=== PATIENT | male | born 1990 | race Caucasian/White ===

== ENCOUNTER 2016-08-29 19:18 | Inpatient (IN) | payer OTHER ==
[~2016-08-29] VITALS: Ht 167.6 cm; Wt 83.5 kg
--- NOTE | 2016-08-29 19:49 | ERA ---
ER Documentation Chief Complaint Date/Time DATE: 08/29/16 TIME: 19:28 Chief Complaint sudden onset right face/arm/leg numb, CARMONA while driving, strong bilat, +face HPI 26-year-old male with a history of prediabetes brought to the ED via rescue ambulance for evaluation of headache, right-sided numbness and difficulty finding words when speaking. At approximately 17:00 while [address] home from work experienced decreased vision from his right eye and upon arriving home complained of right facial numbness and was noticed by family to have a right facial droop and difficulty finding words when asked questions. He then began having numbness and weakness to his right arm and leg. Mild, gradual onset, generalized headache but no neck or back pain. Denies chest pain or palpitations. No shortness of breath or cough. Denies abdominal pain, nausea vomiting. No URI symptoms, rhinorrhea or sore throat. No fevers or chills. ROS All systems reviewed and are negative except as per history of present illness. Medications Home Meds No Active Prescriptions or Reported Meds Allergies Allergies: Coded Allergies: No Known Drug Allergies (Verified Allergy, Unknown, 08/29/16) PMhx/Soc Reviewed in chart. As per HPI. Hx Miscellaneous Medical Probl: Yes (Prediabetes) Hx Alcohol Use: No Hx Substance Use: No Hx Tobacco Use: No FmHx Diabetes and hypertension but no stroke or cancer. Physical Exam Vitals Vital Signs Date Time Temp Pulse Resp B/P Pulse Ox O2 Delivery O2 Flow Rate FiO2 08/29/16 21:45 76 22 117/74 96 08/29/16 21:24 83 18 118/82 96 08/29/16 20:55 88 18 137/85 99 08/29/16 20:42 84 16 137/85 99 08/29/16 20:30 2 08/29/16 19:20 97.8 90 20 151/90 100 Physical Exam Const: Alert, anxious in mild distress. Head: Atraumatic Eyes: Pupils equal reactive to light, extraocular movements are intact. No neglect. No gaze preference. ENT: Normal External Ears, Nose and Mouth. Neck: Full range of motion. Nontender. Carotids 2+ bilaterally without bruits. Resp: Clear to auscultation bilaterally Cardio: Regular rate and rhythm, no murmurs Abd: Soft, non tender, non distended. Normal bowel sounds Skin: No petechiae or rashes Back: No midline or flank tenderness Ext: No cyanosis, or edema Neur: Awake and alert. Aphasic. Right facial droop. Mild right pronator drift. Unable to support right leg against gravity. Mild decreased sensation right upper and right lower extremity. NIH score 5. Psych: Appears anxious but not depressed. Result Diagram: 08/29/16193908/29/161939 Results 24 hrs Laboratory Tests Test 08/29/16 19:40 Activated Partial Thromboplast Time 29.4Sec Alanine Aminotransferase (ALT/SGPT) 41IU/L Albumin 4.5g/dl Albumin/Globulin Ratio 1.18 Alkaline Phosphatase 85IU/L Anion Gap 19 Aspartate Amino Transf (AST/SGOT) 39IU/L Basophils # 0.010^3/ul Basophils % 0.4% Blood Morphology Comment Blood Urea Nitrogen 14mg/dl Calcium Level 9.4mg/dl Carbon Dioxide Level 24mmol/L Chloride Level 103mmol/L Creatinine 0.84mg/dl Direct Bilirubin 0.00mg/dl Eosinophils # 0.210^3/ul Eosinophils % 2.3% Ethyl Alcohol Level < 10.0mg/dl Globulin 3.80g/dl Glucose Level 90mg/dl Hematocrit 46.4% Hemoglobin 15.9g/dl Hemoglobin A1c 5.2% INR International Normalized Ratio 0.98 Indirect Bilirubin 0.4mg/dl Lymphocytes # 2.610^3/ul Lymphocytes % 27.0% Mean Corpuscular Hemoglobin 28.2pg Mean Corpuscular Hemoglobin Concent 34.2g/dl Mean Corpuscular Volume 82.6fl Mean Platelet Volume 9.1fl Monocytes # 0.610^3/ul Monocytes % 6.2% Neutrophils # 6.210^3/ul Neutrophils % 64.1% Nucleated Red Blood Cells # 0.010^3/ul Nucleated Red Blood Cells % 0.0/100WBC Platelet Count 56924^3/UL Potassium Level 3.9mmol/L Prothrombin Time 13.0Sec Prothrombin Time Ratio 1.0 Red Blood Count 5.6110^6/ul Red Cell Distribution Width 12.2% Sodium Level 142mmol/L Total Bilirubin 0.4mg/dl Total Protein 8.3g/dl Troponin I < 0.012ng/ml White Blood Count 9.710^3/ul Current Medications Medications (Trade) Dose Ordered Sig/Lashell Route PRN Reason Start Time Stop Time Status Last Admin Dose Admin Alteplase, Recombinant (Activase) 7.9 mg BOLUS OVER 1 MIN ONCE IV* 08/29/16 20:30 08/29/16 20:31 DC 08/29/16 20:41 Alteplase, Recombinant 71.3 mg 71.3 mg ISCHEMIC STROKE ONCE IV* 08/29/16 20:30 08/29/16 20:31 DC 08/29/16 20:42 Sodium Chloride (NS) 50 ml @ 0 mls/hr FLUSH AFTER TPA ONCE IV 08/29/16 20:30 08/29/16 20:31 DC 08/29/16 20:30 Morphine Sulfate (morphine) 4 mg ONCE STAT IV 08/29/16 20:55 08/29/16 21:00 DC Ondansetron HCl (Zofran Inj) 4 mg ONCE STAT IV 08/29/16 20:55 08/29/16 21:00 DC Metoclopramide HCl (Reglan) 10 mg ONCE ONCE IV 08/29/16 21:00 08/29/16 21:01 DC 08/29/16 21:07 Diphenhydramine HCl 25 mg 25 mg ONCE ONCE IV 08/29/16 21:00 08/29/16 21:01 DC 08/29/16 21:07 Dextrose/Sodium Chloride (D5-1/2ns) 1,000 ml @ 100 mls/hr Q10H IV 08/29/16 21:47 08/30/16 09:03 RHYTHM STRIP INTERPRETATION: Time: []. Sinus rhythm. Ventricular rate 84. No ectopy. Indication: Weakness. EKG: TIME: 20: 27. Sinus rhythm. Ventricular rate 81. Normal MD and QRS. Incomplete right bundle branch block. No acute ST segment elevation or depression. No ectopy. EP Interpretation: Abnormal EKG. IMAGING: PROCEDURE: XR Chest. CLINICAL INDICATION: Possible cerebrovascular accident. TECHNIQUE: Single frontal view of the chest was obtained COMPARISON: None FINDINGS: The heart and mediastinum are within normal limits. The lungs are clear. There is no pleural effusion or pneumothorax. IMPRESSION: No acute disease. RPTAT: UU Physician Danish Date Time Electronically viewed and signed by Physician Danish on 08/29/2016 20:21 RS/ PROCEDURE: CT Brain without contrast. CLINICAL INDICATION: Code stroke TECHNIQUE: A CT of the brain was performed on a GE [employer] 64-slice CT scanner utilizing axial imaging from the skull base through the vertex without IV contrast. Multiplanar reformatted images were made. Images were reviewed on a PACS workstation. The CTDIvol is 45.76 mGy and the DLP is 937.30 mGycm. One of the following 3 dose reduction techniques were used: Automated exposure control; adjustment of the mA and/or kV according to patient size; or use of iterative reconstruction technique. COMPARISON: None available FINDINGS: There is no intracranial hemorrhage, mass effect, or midline shift. No extra- axial fluid collection is seen. The ventricles and sulci are normal in size and configuration. The density of the brain is normal, and the sandhu white matter differentiation appears well-preserved. The visualized scalp and calvarium are normal. The bilateral orbits are normal. The bilateral paranasal sinuses, mastoid air cells and middle ear cavities are clear. IMPRESSION: 1. No evidence of acute intracranial hemorrhage, infarcts, or acute intracranial pathology. 2. Normal noncontrast head CT. A call report was made to RAMÓN Ruiz at 08/29/2016 7:50:51 PM following the completion of the examination by the undersigned. RPTAT: HDC .Iman Martins MD, MD Date Time Electronically viewed and signed by .Iman Martins MD, on 08/29/2016 19: 51 .C/ Procedures/MDM DOCUMENTS REVIEWED: ED nurse, EMS. No prior records available. ED COURSE: 19:41: Code stroke protocol initiated 19:50: Tele-Neurology, Dr Tilwalli 19:50: CT report 20:30: TPA ordered 20:42: TPA Bolus and drip MEDICAL DECISION MAKIN-year-old male with a history of prediabetes brought to the ED via rescue ambulance for evaluation of headache, right-sided numbness and difficulty finding words when speaking. Differential diagnosis includes but is not limited to acute CVA, intracranial mass, hemorrhage, anxiety and migraine without aura. CT of the brain is negative for bleed, mass or stroke. Tele-neurology consult obtained and TPA recommended. Bolus and drip given as per protocol. Patient will be admitted to intensive care unit for stroke workup , further evaluation and management. Counseled patient and family regarding diagnosis, diagnostic results and plan for admission. CALLS/CONSULTS: Time 19:50, Dr. Dr Carbajal, Recommends TPA. CALLS/CONSULTS: Time 21:10, [facility], Dr. Lagunas, Case #[id number]. Agrees patient is not stable for transfer and admission authorized. CALLS/CONSULTS: Time 21:25, Dr. Gee. PATIENT CARE TRANSITIONED: Time: 21:25, Dr. Gee. CRITICAL CARE TIME: Due to the high probability of sudden clinically significant neurologic and hemodynamic deterioration, this patient with acute weakness, possible CVA who received TPA required multiple, frequent reevaluations of vital signs and response to therapy. Additional critical care time was spent in obtaining supplemental history from family and consultation with and consultation with the neurologist the admitting physician. TOTAL CRITICAL CARE TIME: 40 minutes not including other separately reportable procedures. Departure Diagnosis: Primary Impression: Acute right-sided weakness Additional Impressions: Received intravenous tissue plasminogen activator (tPA) in emergency department CVA (cerebral vascular accident) Qualified Code: I63.9 - Cerebrovascular accident (CVA), unspecified mechanism Headache Qualified Code: R51 - Nonintractable headache, unspecified chronicity pattern , unspecified headache type Condition: Critical QUAN MELGAR MD Aug 29, 2016 19:48
[2016-08-29 20:11] LABS: BASOPHILS % 0.4 % (0.0-2.0); EOSINOPHILS # 0.2 10^3/ul (0.0-0.5); EOSINOPHILS % 2.3 % (0.0-7.0); HEMATOCRIT 46.4 % (42.0-52.0); HEMOGLOBIN 15.9 g/dl (14.0-18.0); INR 0.98; LYMPHOCYTES # 2.6 10^3/ul (0.8-2.9); MEAN CORPUSCULAR HEMOGLOBIN 28.2 pg (29.0-33.0); MEAN CORPUSCULAR HGB CONC 34.2 g/dl (32.0-37.0); MEAN CORPUSCULAR VOLUME 82.6 fl (82.0-101.0); MEAN PLATELET VOLUME 9.1 fl (7.4-10.4); MONOCYTE # 0.6 10^3/ul (0.3-0.9); MONOCYTES % 6.2 % (0.0-11.0); NEUTROPHIL # 6.2 10^3/ul (1.6-7.5); NEUTROPHILS % 64.1 % (39.0-77.0); PLATELET COUNT 227 10^3/UL (140-440); RED BLOOD COUNT 5.61 10^6/ul (4.70-6.10); RED CELL DISTRIBUTION WIDTH 12.2 % (11.5-14.5); UNCORRECTED WBC 9.7 10^3/ul (4.8-10.8); WHITE BLOOD COUNT 9.7 10^3/ul (4.8-10.8)
[2016-08-29 20:12] LABS: ALBUMIN 4.5 g/dl (3.3-4.9); PARTIAL THROMBOPLASTIN TIME 29.4 Sec (25.0-35.0)
[2016-08-29 20:13] LABS: CHLORIDE 103 mmol/L (97-110); POTASSIUM 3.9 mmol/L (3.5-5.1); SODIUM 142 mmol/L (135-144)
[2016-08-29 20:15] LABS: ALBUMIN/GLOBULIN RATIO 1.18; ALKALINE PHOSPHATASE 85 IU/L (42-121); ANION GAP 19 (8-16); ASPARTATE AMINO TRANSFERASE 39 IU/L (15-46); BILIRUBIN,INDIRECT 0.4 mg/dl (0-1.1); BILIRUBIN,TOTAL 0.4 mg/dl (0.2-1.3); CARBON DIOXIDE 24 mmol/L (21-31); CREATININE 0.84 mg/dl (0.61-1.24); TOTAL PROTEIN 8.3 g/dl (6.1-8.1)
[2016-08-29 20:16] LABS: ALANINE AMINOTRANSFERASE 41 IU/L (13-69); BLOOD UREA NITROGEN 14 mg/dl (7-20); CALCIUM 9.4 mg/dl (8.4-10.2); GLUCOSE 90 mg/dl (70-220)
--- NOTE | 2016-08-29 20:21 | RADRPT ---
PROCEDURE: XR Chest. CLINICAL INDICATION: Possible cerebrovascular accident. TECHNIQUE: Single frontal view of the chest was obtained COMPARISON: None FINDINGS: The heart and mediastinum are within normal limits. The lungs are clear. There is no pleural effusion or pneumothorax. IMPRESSION: No acute disease. RPTAT: UU Physician Danish Date Time Electronically viewed and signed by Physician Danish on 08/29/2016 20:21 RS/
[2016-08-29 20:25] LABS: CONDITION 1
[2016-08-29 20:30] LABS: TROPONIN-I < 0.012 ng/ml (0.00-0.12)
[2016-08-29] MEDS ORDERED: ALTEPLASE 100 MG INJ IV* ONE (20:30)
[2016-08-29] MEDS ORDERED: SOD CHLORIDE 0.9% 50 ML IV ONE (20:30)
[2016-08-29] MEDS ORDERED: ALTEPLASE (tPA) 1 MG/ML BOLUS SYG IV* ONE (20:30)
[2016-08-29] MEDS ORDERED: ONDANSETRON 4 MG INJ IV STA (20:55)
[2016-08-29] MEDS ORDERED: morphine 4 MG/ML VIAL IV STA (20:55)
[2016-08-29] MEDS ORDERED: DIPHENHYDRAMINE 50 MG INJ IV ONE (21:00)
[2016-08-29] MEDS ORDERED: METOCLOPRAMIDE 10 MG INJ IV ONE (21:00)
[2016-08-29] MEDS ORDERED: LORAZEPAM 2 MG INJ IV PRN (22:00)
[2016-08-29] MEDS ORDERED: ONDANSETRON 4 MG INJ IV PRN (22:00)
[2016-08-29] MEDS ORDERED: ACETAMINOPHEN 325 MG TAB PO PRN (22:00)
[2016-08-29] MEDS ORDERED: morphine 2 MG INJ IV PRN (22:00)
--- NOTE | 2016-08-29 22:07 | STROKE ---
Date/Time of Note Date/Time of Note DATE: 08/29/16 TIME: 20:57 Patient Information General Patient location: emergency Arrival Date 08/29/16 Onset Date: Aug 29, 2016 Onset Time: 18:00 Age 26 Gender male Weight 88 kg Vital Signs Vital Signs Vital Signs Date Time Temp Pulse Resp B/P Pulse Ox O2 Delivery O2 Flow Rate FiO2 08/29/16 20:30 2 08/29/16 19:20 97.8 90 20 151/90 100 Patient History Past Medical History None Past Surgical History None Current Medications Anti-Coagulants: None Anti-Platelets: None Allergies: Coded Allergies: No Known Drug Allergies (Verified Allergy, Unknown, 08/29/16) Labs Hematology Labs Hematology Test 08/29/16 19:40 Basophils # 0.010^3/ul (0.0-0.1) Basophils % 0.4% (0.0-2.0) Blood Morphology Comment Eosinophils # 0.210^3/ul (0.0-0.5) Eosinophils % 2.3% (0.0-7.0) Hematocrit 46.4% (42.0-52.0) Hemoglobin 15.9g/dl (14.0-18.0) Lymphocytes # 2.610^3/ul (0.8-2.9) Lymphocytes % 27.0% (15.0-51.0) Mean Corpuscular Hemoglobin 28.2pg (29.0-33.0) Mean Corpuscular Hemoglobin Concent 34.2g/dl (32.0-37.0) Mean Corpuscular Volume 82.6fl (82.0-101.0) Mean Platelet Volume 9.1fl (7.4-10.4) Monocytes # 0.610^3/ul (0.3-0.9) Monocytes % 6.2% (0.0-11.0) Neutrophils # 6.210^3/ul (1.6-7.5) Neutrophils % 64.1% (39.0-77.0) Nucleated Red Blood Cells # 0.010^3/ul (0.0-0.0) Nucleated Red Blood Cells % 0.0/100WBC (0.0-0.0) Platelet Count 32994^3/UL (140-440) Red Blood Count 5.6110^6/ul (4.70-6.10) Red Cell Distribution Width 12.2% (11.5-14.5) White Blood Count 9.710^3/ul (4.8-10.8) Chemistry Labs Chemistry Test 08/29/16 19:40 Alanine Aminotransferase (ALT/SGPT) 41IU/L (13-69) Albumin 4.5g/dl (3.3-4.9) Albumin/Globulin Ratio 1.18 Alkaline Phosphatase 85IU/L (42-121) Anion Gap 19 (8-16) Aspartate Amino Transf (AST/SGOT) 39IU/L (15-46) Blood Urea Nitrogen 14mg/dl (7-20) Calcium Level 9.4mg/dl (8.4-10.2) Carbon Dioxide Level 24mmol/L (21-31) Chloride Level 103mmol/L (97-110) Creatinine 0.84mg/dl (0.61-1.24) Direct Bilirubin 0.00mg/dl (0.00-0.20) Globulin 3.80g/dl (1.3-3.2) Glucose Level 90mg/dl (70-220) Hemoglobin A1c 5.2% (0-5.9) Indirect Bilirubin 0.4mg/dl (0-1.1) Potassium Level 3.9mmol/L (3.5-5.1) Sodium Level 142mmol/L (135-144) Total Bilirubin 0.4mg/dl (0.2-1.3) Total Protein 8.3g/dl (6.1-8.1) Troponin I < 0.012ng/ml (0.00-0.12) Coagulation Labs: Coagulation Test 08/29/16 19:40 Activated Partial Thromboplast Time 29.4Sec (25.0-35.0) INR International Normalized Ratio 0.98 Prothrombin Time 13.0Sec (12.2-14.2) Prothrombin Time Ratio 1.0 History & Physical Patient History Notes Pt Hx Reviewed History of Present Illness 26yo M presents with acute onset visual difficulty, right facial weakness, and right arm and leg numbness and weakness. Patient reports that his symptoms began on his way home from feeding horses, so he was normal at 6pm. Patient's symptoms began with visual difficulty in his right eye, and on arrival home he was noted to have right facial droop, then noticed right face, arm, and leg numbness and weakness. Patient now also reports he has a headache. He denies photophobia, sonophobia, or nausea. Review of Systems Constitutional: no symptoms reported EENTM: no symptoms reported Respiratory: no symptoms reported Cardiovascular: no symptoms reported Gastrointestinal: no symptoms reported Genitourinary: no symptoms reported Musculoskeletal: no symptoms reported Skin: no symptoms reported Psychiatric/Neurological: no symptoms reported All Other Systems: Reviewed and Negative NIH Stroke Scale NIH Stroke Scale 1A - Level of Conciousness: 0 - Alert keenly [id number] LOC Questions: 1 - Anwers one [id number] - LOC Commands: 0 - Performs both tasks2 - Best Gaze: 0 - Normal3 - Visual: 0 - No visual loss4 - Facial Palsy: 2 - Complete [id number] - Motor Arm - Left: 0 - No [id number] - Motor Arm - Right: 0 - No wrmgb0O - Motor Leg - Left: 0 - No exapo6S - Motor Leg - Right: 0 - No drift7 - Limb Ataxia: 0 - Absent8 - Sensory: 1 - Mild to moderate loss9 - Best Language: 1- Mild to moderate aphasiaDysarthria: 0 - [id number] - Extinction and inattentio: 0 - No abnormalityTotal Score: 4 (vision mostly absent in right eye only, smile initially symmetric then right facial droop, left leg able to maintain elevation but unable to perform Heel to medrano for ataxia testing ) Date/Time Recorded DATE: 08/29/16 TIME: 20:57 Submitted By Eze Carbajal t-PA Imaging Review Imaging Reviewed: Yes Date/Time Imaging Reviewed DATE: 08/29/16 TIME: 20:57 Imaging Findings No acute changes t-PA Administration Recommendation: Yes Weight 88 kg t-PA Recommendation Date/Time 08/29/16 20:20 Recommedation submitted by Eze Carbajal Recommendations Impression Diagnosis acute ischemic stroke Recommendation 26yo M presents with acute onset right sided numbness, weakness, and visual disturbance. Neurological exam is notable for right facial droop, right face, arm, and leg numbness, possible left leg weakness demonstrated with difficulty performing heel-medrano on left leg, and mild aphasia. I suspect acute ischemic stroke but differential diagnosis also includes complicated migraine headache vs psychosomatic weakness. I reviewed the risks and benefits of IV TPA in detail with the patient and his aunt. They agreed with my recommendation for IV TPA. I recommend post-TPA orders be followed, and recommend further workup to include MRI Brain with and without gadolinium, MRA of the head without gadolinium, MRA of the neck with gadolinium, and transthoracic echocardiogram. After my initial consultation, I was called as patient continued to feel his vision was impaired and that his headache was worsening. I then recommended Reglan 10mg IV x 1 with Benadryl 25mg x 1 as this could help if symptoms are related to migraine headache. Post t-PA Order recommendation: Document q15 min vitals Document q15 min neuro checks Document q15 min bleeding checks Refer to t-PA Order Sets Diagnostic Labs: Lipid Proile Hgb A1C CMP CBC w/Diff Coags Therapy: Physical Therapy Speech Therapy Occupational Therapy Misc. Recommendations: Bedside Swallow Evaluation Pnumatic Compression Devices Avoid Love Catheter Stroke Education Smoking Education EZE CARBAJAL Aug 29, 2016 21:13
[2016-08-29 22:45] LABS: ADD UMIC NO; URINE BILIRUBIN (Dip) NEGATIVE (NEGATIVE); URINE BLOOD (Dip) NEGATIVE (NEGATIVE); URINE COLOR LT. YELLOW (YELLOW); URINE GLUCOSE (Dip) NEGATIVE (NEGATIVE); URINE KETONES (Dip) NEGATIVE (NEGATIVE); URINE LEUKOCYTE ESTERASE (Dip) NEGATIVE (NEGATIVE); URINE NITRITE (Dip) NEGATIVE (NEGATIVE); URINE TOTAL PROTEIN (Dip) NEGATIVE (NEGATIVE); URINE UROBILINOGEN (Dip) 0.2 E.U./dL (0.1-1.0)
[2016-08-29 22:50] LABS: BARBITURATES NEGATIVE (NEGATIVE); BENZODIAZEPINES NEGATIVE (NEGATIVE); CANNABINOIDS NEGATIVE (NEGATIVE); COCAINE NEGATIVE (NEGATIVE); OPIATES NEGATIVE (NEGATIVE)
[2016-08-29] MEDS: DEXTROSE 5%-0.45% NACL 1,000 ML IV SCH (23:38)
[2016-08-30] VITALS (54 sets, daily range): BP systolic 96–146; BP diastolic 57–98; PULSE 64–100; RESP 10–26; Ht 167.6 cm; Wt 83.5 kg
[2016-08-30] MEDS: ACCUCHECK XX SCH ×4 (05:32→23:27)
[2016-08-30 06:14] LABS: CHOL/HDL RATIO 5.3 RATIO
[2016-08-30] MEDS: DOCUSATE SODIUM 100 MG CAP PO SCH ×2 (09:00→20:06)
[2016-08-30] MEDS: DEXTROSE 5%-0.45% NACL 1,000 ML IV SCH ×2 (09:03→17:41)
--- NOTE | 2016-08-30 10:12 | HP ---
DATE OF ADMISSION: 08/29/2016 TIME SEEN: 0300 CHIEF COMPLAINT: Right-sided weakness and numbness. The patient is a 26-year-old male with a histor y of dyslipidemia who presents to the emergency department with a chief complaint of right-sided wea kness and numbness. It seems like his symptoms started out with right eye visual abnormality follow ed by right facial droop and then right facial numbness ____ right upper and lower extremity weaknes s and numbness. The patient also reported headache but denied chest pain, shortness of breath, fever , chills, nausea, vomiting. When he presented to the ER blood pressure was 151/90, heart rate 90, respiratory rate 20, temperatu re 97.8, oxygen saturation 100% on room air. CBC and CMP are unremarkable. Brain CT with no eviden ce of acute hemorrhage, infarct or intracranial pathology and chest x-ray no active disease. The p atient was evaluated by Dr. Jessy Carbajal tele neurologist. He is now status post administration of TPA. Currently, he is in the ICU and facial droop has resolved. He has almost full strength now. REVIEW OF SYSTEMS: A 12-point review of systems was performed and is negative except mentioned in t he HPI. PAST MEDICAL HISTORY: As per HPI. PAST SURGICAL HISTORY: Denied. SOCIAL HISTORY: Drinks alcohol socially. Denies history of tobacco or illicit drug use. ALLERGIES: NO KNOWN DRUG ALLERGIES. MEDICATION: None. PHYSICAL EXAMINATION VITAL SIGNS: Stable. GENERAL: No acute distress, responds and answering questions appropriately, speak in full sentences . HEENT: No obvious head deformity. Pupils reactive to light. No facial droop. CARDIOVASCULAR: Regular rate and rhythm with no extra sounds. LUNGS: Clear. ABDOMEN: Soft, nontender, nondistended. Positive bowel sounds. EXTREMITIES: He has slightly decreased strength in the right upper extremity. Otherwise, the rest of the extremities with full strength and sensation are intact. No facial droop. No edema. LABORATORY DATA: CBC and CMP are unremarkable. IMAGING: Chest x-ray and brain CT, there was no active disease. IMPRESSION: 1. Acute cerebrovascular accident, status post TPA. 2. History of hyperlipidemia. PLAN: Continue ICU monitoring. We will followup post TPA protocol. We will obtain MRI of the brai n as well as MRA of the head and neck as well as 2D echo. We will check fasting lipid and A1c in the morning. He will be started on statin 24 hours after TPA. We will check a formal neurology consul t. The patient will have physical therapy prior to discharge and if needed he will also have a for mal speech/swallow evaluation. Further workup and management per clinical course. Dictated By: NIDIA CALDERON/MARION Conf#: [id number] DID#: [id number]
[2016-08-30] MEDS ORDERED: ATOR40TA68 PO (10:56)
[2016-08-30] MEDS ORDERED: ASPI-664 PO (10:56)
--- NOTE | 2016-08-30 12:57 | RADRPT ---
Echocardiogram Report Patient Name: LANDY PETERSON Gender: Male Date: 1990 Study Date: 30-Aug-2016 Lens Dotter: Cheri Montaño RDCS Location: 105 Ref. Physician: NIDIA PRECIADO Quality: Good Procedures: Transthoracic echocardiogram with complete 2D, M-Mode, and doppler examination. Indications: Evaluate Left Ventricular function. 2D/M Mode Doppler Measurement Value Normal Ranges Measurement Value Normal Ranges LVIDd 2D 5.1 3.5 - 5.6 cm AV Peak Stephen 1.3 m/sec LVIDs 2D 3.5 2.1 - 4.1 cm AV Peak PG 6.8 mmHg LVPWd 2D 0.8 0.6 - 1.1 cm LVOT Peak Stephen 1.0 m/sec IVSd 2D 1.0 0.6 - 1.1 cm LVOT Peak PG 4.2 mmHg AoR Diam 2D 3.2 2.0 - 3.7 cm MV E Peak Stephen 0.6 m/sec EDV 2D 123.4 cm3 MV A Peak Stephen 0.6 m/sec ESV 2D 41.7 cm3 MV E/A 1.0 LA Dimen 2D 3.9 2.3 - 4.0 cm MV Decel Time 148 msec MV Decel Tipton 4 MV E/A 1.0 Findings Left Ventricle: Normal left ventricular systolic function. Normal left ventricular cavity size. Normal left ventricular wall thickness. Ejection fraction is visually estimated at 50 %. Right Ventricle: Normal right ventricular size. Normal right ventricular systolic function. Left Atrium: The left atrium is normal in size. Right Atrium: The right atrium is normal in size. Mitral Valve: Normal appearance and function of the mitral valve with trace physiologic regurgitation. Aortic Valve: Normal appearance of the aortic valve. No significant aortic stenosis or insufficiency. Tricuspid Valve: Normal appearance and function of the tricuspid valve with trace physiologic regurgitation. Normal right ventricular systolic pressure. Pericardium: Normal pericardium with no significant pericardial effusion. Aorta: Normal aortic root. IVC: Normal size and normal respiratory collapse consistent with normal right atrial pressure. Conclusions 1.Normal left ventricular systolic function. Normal left ventricular cavity size. Normal left ventricular wall thickness. Ejection fraction is visually estimated at 50 %. 2.Normal appearance and function of the mitral valve with trace physiologic regurgitation. 3.Normal appearance and function of the tricuspid valve with trace physiologic regurgitation. Normal right ventricular systolic pressure. Electronically Signed By: Abdias Norton 30-Aug-2016 12:57:05 -0800 Patient Name: LANDY PETERSON Study Date: 30-Aug-[id number]
--- NOTE | 2016-08-30 14:09 | RADRPT ---
PROCEDURE: Carotid ultrasound CLINICAL INDICATION: Stroke, carotid bruits TECHNIQUE: Deutsch scale, color doppler, spectral doppler ultrasound of the bilateral carotid and nazanin tebral arteries. This study indirectly references the measurement of the distal ICA diameter as the denominator for s tenosis measurement. Validated velocity measurements with angiographic measurements, velocity criter ia are extrapolated from diameter data as defined by: *Cartoid artery stenosis: deutsch-scale and Doppl er US diagnosis. Society of Radiologists in Ultrasound Consensus Conference. Radiology 2003; 229: 34 0-346. SRU Consensus Conference Criteria for the Diagnosis of Carotid Artery Stenosis* Degree of Stenosis, % ICA PSV, cm/sec Plaque Estimate, % ICA/CCA PSV Ratio Normal <125 None <2.0 <50 <125 <50 <2.0 50 69 125-230 >50 2.0-4.0 >70 but less than near occlusion >230 >50 <4.0 Near occlusion High, low, or undetectable Visible Variable Total occlusion Undetectable Visible, no detectable lumen Not applicable COMPARISON: No prior studies are available for comparison. FINDINGS: Location Right CCA66 cm/sec Prox ICA 46 cm/sec Mid ICA53 cm/sec Dist ICA70 cm/sec ECA75 cm/sec ICA/CCA1.1 Left CCA72 cm/sec Prox ICA 71 cm/sec Mid ICA55 cm/sec Dist ICA58 cm/sec ECA69 cm/sec ICA/CCA1.0 Plaque burden: No significant plaque is seen. Antegrade flow is seen within the vertebral arteries bilaterally. IMPRESSION: Normal examination. RPTAT: AADD .Evaristo Ernst MD, Date Time Electronically viewed and signed by .Evaristo Ernst MD, on 08/30/2016 14:08 .B/
--- NOTE | 2016-08-30 18:47 | DS ---
DATE OF ADMISSION: 08/29/2016 DATE OF DISCHARGE: 08/30/2016 DISCHARGE DIAGNOSIS: Cerebrovascular accident of the left brain, status post tissue plasminogen act ivator. Symptoms are now significantly improved. Etiology of CVA in a 26-year-old male is not temitope r at this time. Workup for hypercoagulable state should be done. The patient has no diabetes. His A1c is 5.2. LDL is within normal limits at 134. HOSPITAL COURSE: The patient is a 26-year-old male with no significant medical history. He has a q uestionable history of dyslipidemia, but this is not corroborated on labs during this hospitalizatio n. The patient presents with acute onset of right-sided weakness and numbness, states that his righ t face began to become weak and numb and then progressed to his right arm, then began to have a head ache and had issues with his language. He reportedly had a right facial droop, and once again, he d id have headache, but he denied any chest pain, shortness of breath, fever, chills, nausea, vomiting and no prior history of these similar symptoms in the past. He presented to the ER, where he was s een by Tel[facility], and recommendation was for patient to receive tPA, which he was given. The pa tient did improve after the tPA. His facial droop resolved. His weakness in his right arm also res olved. He did also have some weakness in his right leg, although not as severe as his right arm, an d that resolved as well. The patient had a chest x-ray and brain CT that showed no active disease. His labs were within normal limits. His A1c was 5.2. LDL was 134. ____ labs were stable on the d ay of discharge. The patient denies any family history of any hypercoagulable disorders, denies any history of any premature strokes or heart attacks or blood clots in his siblings or parents. On day of discharge, patient's vital signs, labs, physical exam were stable. He had no acute complai nts, questions were answered. The patient was transferred to [facility] as he is a [place] macy ent. CONDITION ON DISCHARGE: Fair. DISPOSITION: To [place]. MEDICATIONS: 1. The patient received TPA last night and should be started on aspirin this evening. 2. The patient should also be put on a statin. The patient will need hypercoagulable workup to determine if he needs to be on anticoagulants. FOLLOWUP: The patient to follow up with physicians at [place]. Greater than 30 minutes was spent coordinating discharge of patient. Dictated By: CHASE BUCKLEY MD BS/NTS Conf#: [id number] DID#: [id number]
--- NOTE | 2016-08-30 18:52 | RADRPT ---
PROCEDURE: MR Brain without contrast. CLINICAL INDICATION: TECHNIQUE: An MRI of the brain was performed on a 1.5 berenice scanner utilizing the following sequen nancy: Sagittal T1 weighted, axial T2 weighted, axial FLAIR, coronal GRE, and axial diffusion weighted with ADC mapping. COMPARISON: None FINDINGS: No evidence of restricted diffusion to suggest acute or early subacute ischemic infarction. There i s no evidence of intracranial hemorrhage, mass effect, or midline shift. No extra-axial fluid collec tions are seen. No hypointense signal abnormalities are seen on the GRE images to suggest the presence of blood degr adation products. Single punctate nonspecific T2 signal hyperintensity focus in the right frontal lo be subcortical white matter likely representing sequelae of prior infection, trauma or gliosis. Vas culopathy or demyelinating processes are considered unlikely. The brain parenchyma is normal in signal intensity and morphology with preservation of sandhu white di fferentiation . Age appropriate size of the ventricles and subarachnoid spaces. The posterior fossa contents, brainstem, seventh - eighth cranial nerve complexes, pituitary axis, o rbits, paranasal sinuses, and mastoid air cells are unremarkable. Normal flow voids are visible in the proximal intracranial arteries and dural sinuses, indicating pa tency. IMPRESSION: 1. No acute or early subacute ischemic infarction. 2. No other acute intracranial abnormality. RPTAT: HH Physician Manpreet Date Time Electronically viewed and signed by Physician Manpreet on 08/30/2016 18:52 VERNON/
[2016-08-30] MEDS ORDERED: ATORVASTATIN 20 MG TAB PO SCH (21:00)
[2016-08-31] VITALS (29 sets, daily range): BP systolic 95–150; BP diastolic 52–91; PULSE 59–97; RESP 11–22
[2016-08-31] MEDS: DEXTROSE 5%-0.45% NACL 1,000 ML IV SCH ×2 (05:34→13:47)
[2016-08-31] MEDS: ACCUCHECK XX SCH ×2 (05:49→11:23)
[2016-08-31] MEDS: DOCUSATE SODIUM 100 MG CAP PO SCH (09:00)
--- NOTE | 2016-08-31 11:56 | PDOCDIS ---
Discharge Instructions CONDITION Patient Condition: Good HOME CARE INSTRUCTIONS: Diet Instructions: Regular ACTIVITY: Activity Restrictions: No Restrictions FOLLOW UP/APPOINTMENTS Appointments F/U WITH YOUR PCP IN 1-2 WEEKS AND WITH A INSURANCE CLAIMS SUPERVISOR FOR A HYPERCOAGULABLE WORK UP CHASE BUCKLEY Aug 31, 2016 11:56
--- NOTE | 2016-09-01 06:38 | DS ---
DATE OF ADMISSION: 08/29/2016 DATE OF DISCHARGE: 08/31/2016 ADDENDUM: DISCHARGE DIAGNOSIS: Cerebrovascular accident involving the right side of the body, status post TPA, symptoms now resolved. MRI was negative. HOSPITAL COURSE: The patient is a 26-year-old male with no significant medical history. Please se e discharge summary from 08/30/2016 for further details. The patient was to be transferred to [facility] yesterday, but MRI of the brain was pending. MRI returned with negative results with no early sub acute ischemic infarction, no other mild abnormalities noted. The patient was doing well, ambulatin g, eating well, so the patient can go home and follow up with [place] as an outpatient for hypercoagu lable workup. reservoir engineering manager arranged for the patient to follow up with his PCP and a parts department manager for hypercoagulable workup. The patient was doing well on the day of discharge. The patient's vitals, labs, and physical exam were stable on the day of discharge. CONDITION ON DISCHARGE: Stable. DISPOSITION: To home. MEDICATIONS: The patient was given a prescription for: 1. Aspirin 81 daily. 2. Lipitor 40 mg at bedtime. The patient has no reported home medications. FOLLOWUP: The patient is to follow up with PCP at [place] and with parts department manager for hypercoagulable workup. The patient was given appointments by family preservation caseworker. CONDITION ON DISCHARGE: Stable. Greater than 30 minutes was spent coordinating discharge of patient. Dictated By: CHASE BUCKLEY MD BS/NTS Conf#: [id number] DID#: [id number]
== END 2016-08-31 14:40 | disposition short-term general hospital (02) | DRG 63 ==
LOC: E/R 19:18 → ICU 21:47
PROVIDERS: ADMIT Internal Medicine; ATTEND Internal Medicine
DX: I63.9 Cerebral infarction, unspecified (principal); E78.5 Hyperlipidemia, unspecified; R29.810 Facial weakness
CPT/HCPCS: 36415; 70450; 70551; 71010; 80053; 80061; 80306; 80307; 81003; 82962; 83036; 84484; 85025; 85610; 85730; 87081; 93005; 93306; 93880; 96374; 96375; J1200; J2270; J2405; J2765; J2997; J7042